=== PATIENT | male | born 1950 | race Caucasian/White ===

== ENCOUNTER 2025-01-12 12:11 | Emergency (ER) | payer MEDICARE, OTHER, SELFPAY ==
[2025-01-12 12:34] VITALS: BP 153/77; PULSE 89; RESP 16; TEMP 37.2; O2SAT 97; BMI 34.9
== END 2025-01-12 14:38 | disposition left against medical advice (07) ==
PROVIDERS: Emergency Provider Emergency Medicine
CPT/HCPCS: 99281